=== PATIENT | female | born 1990 | race Caucasian/White ===

== ENCOUNTER 2017-05-08 14:51 | Emergency (ER) | payer OTHER ==
[~2017-05-08] VITALS: Ht 170.2 cm; Wt 77.1 kg
[~2017-05-08 14:51] MED LIST: IBUPROFEN800 M1 PO; TRAMADOL HCL50 M1 PO
[2017-05-08 14:56] VITALS: BP 124/85
--- NOTE | 2017-05-08 15:07 | ED UPPER/LOWER EXTREMITY COMPL ---
History of Present Illness General Chief Complaint: Shoulder Injury Stated Complaint: R SHOULDER PAIN Source: patient Exam Limitations: no limitations Vital Signs & Intake/Output Vital Signs & Intake/Output Vital Signs Date Time Temp Pulse Resp B/P B/P Pulse O2 O2 Flow FiO2 Mean Ox Delivery Rate 05/08 1456 97.4 103 15 124/85 97 Room Air Room Air Allergies Coded Allergies: No Known Allergies (05/08/17) Reconcile Medications Cyclobenzaprine HCl 10 MG TABLET 1 TAB PO QPM PRN MUSCLE RELAXOR Ibuprofen 800 MG TABLET 1 TAB PO TID PRN PAIN Ketorolac Tromethamine 10 MG TABLET 1 TAB PO TID PRN PAIN Methylprednisolone. (Medrol) 4 MG TAB.DS.PK 1 DP PO AD INFLAMMATION 6 on day 1 then reduce by one tablet daily until gone Tramadol HCl 50 MG TABLET 1 TAB PO TIDP PRN PAIN Triage Note: PT TO ED FOR C/C OF R SHOULDER PAIN THAT STARTED 4 DAYS AGO AFTER THROWING A SOFT BALL. TOOK ALEVE WITHOUT RELIEF. DECREASED ROM. Triage Nurses Notes Reviewed? yes Onset: Gradual Duration: constant Timing: recent history Severity: severe Severity Numbers: 7 : No Patient currently breastfeeds: No HPI: Patient is a 27-year-old female with a past medical history of insulin-dependent type 1 diabetes with insulin pump who presents to emergency room stating that she has played a significant number of years of softball while growing up and has had "bad right shoulder" for many years and which she states that on Thursday she was throwing a softball and had pain throughout the evening while throwing however denies any acute onset of pain where she states that since she's been complaining of right lateral neck and upper trapezius and generalized shoulder pain with mild intermittent distal radiating paresthesia Patient has been taking ibuprofen with mild relief of symptoms. Denies any extremity swelling (Vini Montanez) Past History Travel History Traveled to [place] past 21 day No Medical History Any Pertinent Medical History? see below for history Neurological: NONE EENT: NONE Cardiovascular: NONE Respiratory: NONE Gastrointestinal: NONE Hepatic: NONE Renal: NONE Musculoskeletal: NONE Psychiatric: NONE Endocrine: DIABETES INSULIN DEPEND Blood Disorders: NONE Cancer(s): NONE DOMESTIC LAUNDRY WORKER/Reproductive: ENDOMETRIOSIS Surgical History Surgical History: none Psychosocial History What is your primary language Sami Tobacco Use: Never used ETOH Use: occasional use Illicit Drug Use: denies illicit drug use Family History Hx Contributory? No (Vini Montanez) Review of Systems Review of Systems Constitutional: Reports: no symptoms. EENTM: Reports: no symptoms. Respiratory: Reports: no symptoms. Cardiovascular: Reports: no symptoms. Gastrointestinal/Abdominal: Reports: no symptoms. Genitourinary: Reports: no symptoms. Musculoskeletal: Reports: see HPI, muscle pain, muscle stiffness, neck pain. Skin: Reports: no symptoms. Neurological/Psychological: Reports: no symptoms. Hematologic/Endocrine: Reports: no symptoms. Immunological: Reports: no symptoms. All Other Systems: Reviewed and Negative (Vini Montanez) Physical Exam Physical Exam General Appearance: no apparent distress, comfortable Head: atraumatic Eyes: Bilateral: normal appearance. Ears, Nose, Throat: hearing grossly normal Neck: normal inspection, supple, full range of motion, tender lateral, no midline tenderness Cardiovascular/Respiratory: normal breath sounds, normal peripheral pulses, regular rate/rhythm, no respiratory distress Peripheral Pulses: 2+ radial (R) Neurologic/Tendon: normal sensation, normal motor functions, normal tendon functions, responds to pain, no evidence tendon injury, no pulse deficit Skin: intact, normal color, warm/dry Comments: Negative Lv's test bilaterally Right shoulder noted upper trapezius hypertrophy and muscle point tenderness Full active range of motion with pain above 60 of flexion abduction 5/5 resisted range of motion with internal rotation and external rotation flexion abduction Right elbow full active range of motion and nontender Right wrist and hand full active range of motion 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 +2 (Vini Montanez) Progress Differential Diagnosis: arterial insufficiency, compartment syndrome, contusion, dislocation, DVT, fracture, gout, septic arthritis, sprain, tendon injury Plan of Care: Orders Procedure Date/time Status XRY-SHOULDER COMPLETE-RIGHT 05/08 1528 Active Current Medications Sig/Lewis Start time Last Medication Dose Stop Time Status Admin Ketorolac 30 MG ONCE ONE 05/08 1530 UNVr Tromethamine 05/08 1531 (Toradol) Patient's right upper extremity was neurovascularly intact x-rays were unremarkable for osseous injury, patient was given copies of x-rays She states she has an establishment with [facility] FOR FOLLOW UP Diagnostic Imaging: Viewed by Me: Radiology Read. Radiology Impression: no acute abnormality Comments: PATIENT: JOSELO FRANK PRESENT AGE: 27 PATIENT ACCOUNT NO: [id number] : 92 LOCATION: [facility] ORDERING PHYSICIAN: Vini CORDERO SERVICE DATE: 05/08/17 EXAM TYPE: RAD - XRY-SHOULDER COMPLETE-RIGHT EXAMINATION: XR SHOULDER, RIGHT CLINICAL INFORMATION: Pain COMPARISON: None TECHNIQUE: AP external rotation, Grashey, scapular Y, and axillary views of the right shoulder. FINDINGS: The bones and soft tissues are normal. No fracture. Glenohumeral and acromioclavicular alignment is anatomic with normal joint space. No abnormal soft tissue calcifications. IMPRESSION: Normal right shoulder. DICTATED BY: Dharmesh Sesay MD DATE/TIME DICTATED:05/08/171535 PAEDIATRIC PHYSIOTHERAPIST:CAM DATE/TIME TRANSCRIBED:05/08/171535 CONFIDENTIAL, DO NOT COPY W (Vini Montanez) Departure Departure Disposition: HOME OR SELF CARE Condition: Stable Clinical Impression Primary Impression: Right shoulder pain Secondary Impressions: Radicular pain in right arm Referrals: Patient Has No Primary Care Dr (PCP/Family) Additional Instructions: As discussed begin icing the area 20 minutes every 2 hours, begin the prescription of catarrhal act for pain and inflammation the prescription of Medrol Dosepak for inflammation and a prescription of cyclobenzaprine for muscle relaxation, prescriptions waiting at [facility]. If no better on Thursday follow-up with your orthopedic doctor please provide them with copies of x-ray provided to you continue to check your Departure Forms: Customer Survey General Discharge Information Prescriptions: Current Visit Scripts Ketorolac Tromethamine 1 TAB PO TID PRN PAIN #15 TAB Cyclobenzaprine HCl 1 TAB PO QPM PRN MUSCLE RELAXOR #7 TAB Methylprednisolone. (Medrol) 1 DP PO AD #1 DP 6 on day 1 then reduce by one tablet daily until gone (Vini Montanez) PA/ROAD ENGINEER FREIGHT Co-Sign Statement Statement: ED Attending supervision documentation- I saw and evaluated the patient. I have also reviewed all the pertinent lab results and diagnostic results. I agree with the findings and the plan of care as documented in the PA's/ROAD ENGINEER FREIGHT's documentation. x I have reviewed the ED Record and agree with the PA's/ROAD ENGINEER FREIGHT's documentation. [] Additions or exceptions (if any) to the PAs/ROAD ENGINEER FREIGHT's note and plan are summarized below: [] (Susan PADILLA,Rich)
[2017-05-08] MEDS ORDERED: MEDROL4 M2 PO (15:35)
[2017-05-08] MEDS ORDERED: KETOROLAC TROME10 M1 PO (15:35)
[2017-05-08] MEDS ORDERED: CYCLOBENZAPRINE10 M1 PO (15:35)
--- NOTE | 2017-05-08 15:40 | RADIOLOGY REPORT ---
EXAMINATION: XR SHOULDER, RIGHT CLINICAL INFORMATION: Pain COMPARISON: None TECHNIQUE: AP external rotation, Grashey, scapular Y, and axillary views of the right shoulder. FINDINGS: The bones and soft tissues are normal. No fracture. Glenohumeral and acromioclavicular alignment is anatomic with normal joint space. No abnormal soft tissue calcifications. IMPRESSION: Normal right shoulder.
== END 2017-05-08 16:00 ==
LOC: ERH 14:51
DX: M54.10 Radiculopathy, site unspecified (principal)
CPT/HCPCS: 73030-RT; 96372; J1885